=== PATIENT | male | born 1955 | race Caucasian/White ===

== ENCOUNTER → 2016-08-21 | Outpatient (CLI) | payer OTHER ==
--- NOTE | 2016-08-21 11:58 | RAD ---
Indication lightheaded. Elevated blood pressure. Suspect TIA. Grayscale color Doppler and spectral imaging was performed. Examination was targeted to the carotid bifurcations. On the left there is slight intimal thickening at the bifurcation. The color Doppler images do not suggest significant turbulence. The common carotid waveform and velocities are normal. The internal carotid waveform and velocities are also normal. The external carotid has a normal appearance. The vertebral is patent and demonstrates normal directional flow. On the right there is some plaquing and intimal thickening. The common carotid waveform and velocities are normal. At the bulb there is an elevated peak systolic and diastolic velocity. The corresponding measurements are approximately 232 and 77 cm/s corresponding to stenosis in the 70% range. In the proximal right internal carotid there are elevated peak systolic and diastolic velocities of approximately 200 and 65 cm/s respectively respectively compatible with stenosis in the 50-69% range. Vertebral is patent and demonstrates normal directional flow. IMPRESSION: Stenosis at the right carotid bulb likely in the 70% range. No hemodynamically significant stenosis seen on the left. Note: Stenosis calculations for CT, MR and conventional angiography are based upon determination of the distal ICA diameter in accordance with the NASCET methodology. Stenosis calculations for doppler studies are derived from validated velocity criteria which are known to correlate with NASCET methodology of determining stenosis.
== END | disposition home or self-care (01) ==
LOC: US 07:59
PROVIDERS: ATTEND Physician Assistant
DX: I10 Essential (primary) hypertension (principal); R42 Dizziness and giddiness; Z72.0 Tobacco use
CPT/HCPCS: 93880

== ENCOUNTER 2016-12-29 17:36 | Emergency (ER) | payer OTHER ==
[~2016-12-29] VITALS: Ht 185.4 cm; Wt 113.4 kg
[2016-12-29] MEDS ORDERED: LIDOCAINE 1% Multi-Dose 20 ML VIAL. ONE (18:02)
[2016-12-29] MEDS ORDERED: CEPH-264 PO (18:31)
--- NOTE | 2016-12-29 18:32 | PHYS DOC ---
Past History Past Medical History: Hypertension Past Surgical History: Other Alcohol Use: None Drug Use: None Adult General Chief Complaint Chief Complaint: LACERATION/AVULSION HPI HPI Patient is a 61 year old male who presents with complaint of laceration to the right index finger. Patient states he suffered this laceration at approximately 0900 this morning while attempting to sharpen his hatchet. Patient states that the hatchet accidentally slid off the sharpener it went across to his right index finger. Bleeding was controlled at home. Due to gaping skin, the patient came to the emergency department for evaluation. Patient denies any other injuries. Patient states that he last received a tetanus shot within the last 5 years. Patient states that he is able to move the finger normally. Patient states there is no pain. Patient states that he did immediately wash the wound at home and bandage it after this occurred. Review of Systems Review of Systems Constitutional: Denies fever or chills [] HENT: Denies nasal congestion or sore throat [] Musculoskeletal: Left index finger laceration [] Integument: Denies rash or skin lesions [] Neurologic: Denies headache, focal weakness or sensory changes [] Current Medications Current Medications Current Medications Medications (Trade) Dose Ordered Sig/Daniel Start Time Stop Time Status Last Admin Dose Admin Lidocaine HCl 20 ml STK-MED ONCE 12/29/16 18:02 12/29/16 18:03 DC Physical Exam Physical Exam Constitutional: Well developed, well nourished, no acute distress, non-toxic appearance. [] HENT: Normocephalic, atraumatic, bilateral external ears normal, oropharynx moist, no oral exudates, nose normal. [] Skin: Warm, dry, no erythema, no rash. [] Extremities: 2.5 cm linear laceration along dorsal lateral aspect of right index finger overlying the PIP joint, normal flexion and extension, no cyanosis , capillary refill less than 2 seconds, normal sensation. [] Neurologic: Alert and oriented X 3, normal motor function, normal sensory function, no focal deficits noted. [] Current Patient Data Vital Signs Vital Signs Date Time Temp Pulse Resp B/P (MAP) Pulse Ox O2 Delivery O2 Flow Rate FiO2 12/29/16 17:36 98.9 90 18 96 Room Air EKG EKG Not performed [] Radiology/Procedures Radiology/Procedures Not performed [] Course & Med Decision Making Course & Med Decision Making Pertinent Labs and Imaging studies reviewed. (See chart for details) Patient's laceration was repaired as outlined in the procedure note. Advised follow-up in 10 days for removal of sutures hip patient's primary care physician 's office. Patient given 5 day prophylactic course of Keflex. Patient's tetanus was up-to-date and did not require a booster in the emergency department. Advised patient to return emergency department for any worsening symptoms. Patient voiced understanding and in agreement with treatment plan. Dragon Disclaimer Dragon Disclaimer This chart was dictated in whole or in part using Voice Recognition software in a busy, high-work load, and often noisy Emergency Department environment. It may contain unintended and wholly unrecognized errors or omissions. Laceration Repair Lac Repair Indication: Right index finger laceration Procedure: The patient was placed in the appropriate position and anesthesia was achieved with injection of a digital block of the right index finger with lidocaine 1%. The area was then cleansed with tap water and chlorhexidine soap solution. The laceration was closed using simple interrupted 4-0 Ethilon sutures. The wound area was then dressed with antibiotic ointment, nonadherent pad and Coban. Total repaired wound length: 2.5 cm. Other Items: Total suture count: 4 The patient tolerated the procedure without difficulty. Complications: None. Departure Departure: Impression: Primary Impression: Finger laceration Disposition: 01 HOME, SELF-CARE Condition: GOOD Referrals: LEWIS QUEVEDO (PCP) Patient Instructions: Laceration Care, Adult, Sutured Wound Care Additional Instructions: Follow up with your primary doctor in 10-14 days for removal of your sutures. Return to the emergency department for any worsening symptoms. Scripts Cephalexin (KEFLEX) 500 Mg Capsule 1 CAP PO TID, #15 CAP Prov: UZIEL MANE MD 12/29/16 Problem Qualifiers Primary Impression: Finger laceration Encounter type: initial encounter Finger: index finger Damage to nail status: without damage Foreign body presence: without foreign body Laterality: right Qualified Codes: S61.210A - Laceration without foreign body of right index finger without damage to nail, initial encounter UZIEL MANE MD Dec 29, 2016 18:32
[2016-12-29] MEDS ORDERED: LIDOCAINE 1% Multi-Dose 20 ML VIAL. IJ ONE (18:45)
[2016-12-29 18:51] VITALS: BP 143/74
[2016-12-29] MEDS ORDERED: CEPHALEXIN 500 MG CAPSULE PO ONE (19:00)
[2016-12-29] MEDS ORDERED: CEPHALEXIN 250 MG CAPSULE PO ONE (19:00)
== END 2016-12-29 18:48 | disposition home or self-care (01) ==
LOC: ER 17:36
DX: S61.210A Laceration without foreign body of right index finger without damage to nail, initial encounter (principal); I10 Essential (primary) hypertension; W27.8XXA Contact with other nonpowered hand tool, initial encounter; Y93.89 Activity, other specified; Y99.8 Other external cause status; Y92.89 Other specified places as the place of occurrence of the external cause
CPT/HCPCS: 12001; 99283-25

== ENCOUNTER 2017-06-16 10:05 | Observation (INO) | payer OTHER ==
[~2017-06-16] VITALS: Ht 182.9 cm; Wt 124.9 kg
[~2017-06-16 10:05] MED LIST: CEPH-264 PO
[2017-06-16] MEDS ORDERED: IV NORMAL SALINE 1,000ML 1,000 ML IV SCH (10:15)
[2017-06-16 10:28] LABS: BASO # 0.1 x10^3/uL (0.0-0.2); BASO % 1 % (0-3); EOS # 0.4 x10^3/uL (0.0-0.7); EOS % 8 % (0-3); HEMOGLOBIN 11.9 g/dL (13.0-17.5); LYMPH # 1.6 x10^3/uL (1.0-4.8); LYMPH % 30 % (24-48); MEAN CORPUSCULAR HEMOGLOBIN 29 pg (25-35); MEAN CORPUSCULAR HGB CONC 33 g/dL (31-37); MEAN CORPUSCULAR VOLUME 86 fL (79-100); MONO # 0.7 x10^3/uL (0.0-1.1); MONO % 13 % (0-9); NEUT # 2.6 x10^3uL (1.8-7.7); NEUT % 48 % (31-73); PLATELET COUNT 240 x10^3/uL (140-400); RED BLOOD COUNT 4.17 x10^6/uL (4.30-5.70); RED CELL DISTRIBUTION WIDTH 14.6 % (11.5-14.5); WHITE BLOOD COUNT 5.5 x10^3/uL (4.0-11.0)
[2017-06-16] MEDS ORDERED: ASPIRIN 81 MG TAB.CHEW PO ONE (10:45)
[2017-06-16 10:51] LABS: CALCIUM 9.1 mg/dL (8.5-10.1); CREATININE 1.1 mg/dL (0.7-1.3); GFR 67.6; MAGNESIUM 1.9 mg/dL (1.8-2.4)
[2017-06-16] MEDS ORDERED: IOHEXOL 300 MG/ML 75 ML VIAL. IV ONE (11:30)
--- NOTE | 2017-06-16 11:58 | EKG ---
[address] [address] Test Date: 2017-06-16 Test Time: 10:12:46 Pat Name: WILL DUVALL Department: Room: Gender: M Automatic [employer] Sander: AIDEN : 1955 Requested By: TIMOTHY ANDUJAR Order Number: [id number] Reading MD: Alfa Thomas Measurements Intervals [place] Rate: 78 P: 41 DC: 154 QRS: 14 QRSD: 80 T: 35 QT: 364 QTc: 418 Interpretive Statements SINUS RHYTHM Electronically Signed On 06-17-2017 16:48:57 MOLD CARPENTER by Alfa Thomas
[2017-06-16] MEDS ORDERED: ENOXAPARIN ** NOTE DOSE ** SYRINGE SQ ONE (12:00)
--- NOTE | 2017-06-16 12:03 | RAD ---
CTA chest with contrast 06/16/2017 Clinical indication: Concern for pulmonary embolism. Comparison: None. Technique: Multiple CTA images of the chest were performed following the intravenous administration of 75 mL Omnipaque 300 iodinated contrast material. PQRS Compliance Statement: One or more of the following individualized dose reduction techniques were utilized for this examination: 1. Automated exposure control 2. Adjustment of the mA and/or kV according to patient size 3. Use of iterative reconstruction technique Findings: Heart size is normal without significant pericardial effusion. The thoracic aorta is normal in caliber. The central and major segmental pulmonary arteries are patent without focal filling defect. No axillary, mediastinal lymphadenopathy. There are mildly prominent bilateral hilar lymph nodes, likely reactive. The central airways are patent. No pleural effusion, pneumothorax or suspicious noncalcified pulmonary nodule. There is a chronic appearing moderate compression deformity at T8 with no significant bony retropulsion. There is a prominent subcentimeter lucency at the superior aspect of T8 with adjacent sclerosis. Limited images of the upper abdomen moderate diffuse hepatic steatosis. Impression: 1. No CT evidence of pulmonary embolism. 2. Moderate chronic appearing T8 compression deformity with a small adjacent lucency which may represent a Schmorl's node deformity, however pathologic fracture cannot be excluded. Nonemergent follow-up thoracic spine without with contrast is recommended. 3. Moderate hepatic steatosis.
--- NOTE | 2017-06-16 12:45 | PHYS DOC ---
Past History Past Medical History: Hypertension Past Surgical History: Other Alcohol Use: None Drug Use: None Adult General Chief Complaint Chief Complaint: CHEST PAIN HPI HPI Patient is a 62 year old M who presents with sudden onset of central pressure- like chest pain associated with diaphoresis and shortness of breath just prior to arrival. He states that his symptoms have improved. He has not had similar symptoms in the past. He did have a recent knee replacement with a follow-up explored of arthroscopy due to concern for infection on May 30. He had no infection at that time. He has high blood pressure and smoke tobacco up until [place] of this past year. He has no other associated symptoms. And no other exacerbating or relieving factors. Review of Systems Review of Systems Constitutional: Denies fever or chills [] Eyes: Denies change in visual acuity, redness, or eye pain [] HENT: Denies nasal congestion or sore throat [] Respiratory: Negative except history of present illness Cardiovascular: No additional information not addressed in HPI [] GI: Denies abdominal pain, nausea, vomiting, bloody stools or diarrhea [] : Denies dysuria or hematuria [] Musculoskeletal: Denies back pain or joint pain [] Integument: Denies rash or skin lesions [] Neurologic: Denies headache, focal weakness or sensory changes [] Endocrine: Denies polyuria or polydipsia [] All other systems were reviewed and found to be within normal limits, except as documented in this note. Family History Family History No pertinent family medical history was reported Current Medications Current Medications Current medications were reviewed Current Medications Medications (Trade) Dose Ordered Sig/Daniel Start Time Stop Time Status Last Admin Dose Admin Aspirin (Children'S Aspirin) 324 mg 1X ONCE 06/16/17 10:45 06/16/17 10:46 DC Enoxaparin Sodium (Lovenox 120mg Syringe) 115 mg 1X ONCE 06/16/17 12:00 06/16/17 12:07 DC Iohexol (Omnipaque 300 Mg/ml) 75 ml 1X ONCE 06/16/17 11:30 06/16/17 11:30 DC Sodium Chloride 1,000 ml @ 1,000 mls/hr Q1H 06/16/17 10:15 06/16/17 11:14 DC 06/16/17 11:08 1,000 MLS/HR Allergies Allergies Allergies Coded Allergies Type Severity Reaction Last Updated Verified No Known Drug Allergies 12/29/16 No Physical Exam Physical Exam Constitutional: Well developed, well nourished, no acute distress, non-toxic appearance. [] HENT: Normocephalic, atraumatic, Eyes: EOMI, conjunctiva normal, no discharge. [] Neck: Normal range of motion, no tenderness, supple, no stridor. [] Cardiovascular:Heart rate regular rhythm, Lungs & Thorax: Bilateral breath sounds clear to auscultation [] Abdomen: Bowel sounds normal, soft, no tenderness, no masses, no pulsatile masses. [] Skin: Warm, dry, no erythema, no rash. [] Back: No tenderness, no CVA tenderness. [] Extremities: No tenderness, no cyanosis, no clubbing, ROM intact, no edema. [] Neurologic: Alert and oriented X 3, normal motor function, normal sensory function, no focal deficits noted. [] Psychologic: Affect normal, judgement normal, mood normal. [] Current Patient Data Vital Signs Normal vital signs. Please review nursing documentation for specifics Lab Results Laboratory Tests Test 06/16/17 10:18 White Blood Count 5.5 x10^3/uL (4.0-11.0) Red Blood Count 4.17 x10^6/uL (4.30-5.70) L Hemoglobin 11.9 g/dL (13.0-17.5) L Hematocrit 36.0 % (39.0-53.0) L Mean Corpuscular Volume 86 fL (79-100) Mean Corpuscular Hemoglobin 29 pg (25-35) Mean Corpuscular Hemoglobin Concent 33 g/dL (31-37) Red Cell Distribution Width 14.6 % (11.5-14.5) H Platelet Count 240 x10^3/uL (140-400) Neutrophils (%) (Auto) 48 % (31-73) Lymphocytes (%) (Auto) 30 % (24-48) Monocytes (%) (Auto) 13 % (0-9) H Eosinophils (%) (Auto) 8 % (0-3) H Basophils (%) (Auto) 1 % (0-3) Neutrophils # (Auto) 2.6 x10^3uL (1.8-7.7) Lymphocytes # (Auto) 1.6 x10^3/uL (1.0-4.8) Monocytes # (Auto) 0.7 x10^3/uL (0.0-1.1) Eosinophils # (Auto) 0.4 x10^3/uL (0.0-0.7) Basophils # (Auto) 0.1 x10^3/uL (0.0-0.2) D-Dimer (Kinjal) 12.78 mg/L (0.00-0.50) H Sodium Level 139 mmol/L (136-145) Potassium Level 4.0 mmol/L (3.5-5.1) Chloride Level 101 mmol/L (98-107) Carbon Dioxide Level 29 mmol/L (21-32) Anion Gap 9 (6-14) Blood Urea Nitrogen 19 mg/dL (8-26) Creatinine 1.1 mg/dL (0.7-1.3) Estimated GFR (Cockcroft-Gault) 67.6 Glucose Level 113 mg/dL (70-99) H Calcium Level 9.1 mg/dL (8.5-10.1) Magnesium Level 1.9 mg/dL (1.8-2.4) Creatine Kinase 325 U/L (39-308) H Creatine Kinase MB (Mass) 3.9 ng/mL (0.0-3.6) H Creatine Kinase MB Relative Index 1.2 % (0-4) Troponin I Quantitative < 0.017 ng/mL (0-0.055) KZ-Dmx-N-Type Natriuretic Peptide 53 pg/mL (0-124) EKG EKG No sinus rhythm[] Radiology/Procedures Radiology/Procedures CT angiogram - negative for PE per radiology report Course & Med Decision Making Course & Med Decision Making Pertinent Labs and Imaging studies reviewed. (See chart for details) [] Dragon Disclaimer Dragon Disclaimer This electronic medical record was generated, in whole or in part, using a voice recognition dictation system. Departure Departure: Impression: Primary Impression: Chest pain Disposition: ADMITTED INPATIENT Condition: STABLE Referrals: LEWIS QUEVEDO (PCP) Problem Qualifiers Primary Impression: Chest pain Chest pain type: unspecified Qualified Codes: R07.9 - Chest pain, unspecified TIMOTHY ANDUJAR MD Jun 16, 2017 12:45
[2017-06-16 15:14] VITALS: BP 164/81
[2017-06-16] MEDS ORDERED: ASPI325T8 PO (15:30)
[2017-06-16] MEDS ORDERED: OMEP20TA8 PO (15:30)
[2017-06-16] MEDS ORDERED: SENN8.6T99 PO (15:30)
[2017-06-16] MEDS ORDERED: HYDR-2766 PO (15:30)
[2017-06-16] MEDS ORDERED: CHOL500016 PO (15:30)
[2017-06-16] MEDS ORDERED: FERR324T2 PO (15:30)
[2017-06-16] MEDS ORDERED: VALS320T2 PO (15:30)
[2017-06-16] MEDS ORDERED: CIPR500T94 PO (15:32)
[2017-06-16] MEDS ORDERED: DOXY100T PO (15:32)
--- NOTE | 2017-06-16 17:37 | CARD ---
MR#: [id number] Date of Study: 06/16/2017 Ordering Physician: YAMILKA CHANG, Referring Physician: YAMILKA CHANG Tech: Azeem Barreto [facility] APPROVED REPORT EXAM: Two-dimensional and M-mode echocardiogram with Doppler and color Doppler. Other Information Quality : AverageHR: 76bpm INDICATION Chest Pain 2D DIMENSIONS Left Atrium(2D)3.9 (1.6-4.0cm)IVSd1.1 (0.7-1.1cm) Aortic Root(2D)3.1 (2.0-3.7cm)LVDd4.6 (3.9-5.9cm) LVOT Diameter2.3 (1.8-2.4cm)PWd1.0 (0.7-1.1cm) LVDs3.2 (2.5-4.0cm)FS (%) 30.9 % SV56.3 mlLVEF(%)58.6 (>50%) Aortic Valve AoV Peak Seamus.169.9cm/sAoV VTI34.2cm AO Peak GR.11.6mmHgLVOT Peak Seamus.135.8cm/s AO Mean GR.6mmHgAVA (VMAX)3.38cm2 Mitral Valve MV E Chjozcvc87.4cm/sMV DECEL [id number] MV A Rwvdelgl69.7cm/sE/A Ratio1.1 Pulmonary Valve PV Peak Wxqgiixq693.0cm/sPV Peak Grad.7mmHg Tricuspid Valve TR P. Pylyrmvt527cz/sTR Peak Gr.9mmHg Pulmonary Vein S1 Qhwtjomm32.2cm/sD2 Cfcjygon11.0cm/s LEFT VENTRICLE The left ventricle is normal size. There is normal left ventricular wall thickness. The left ventricu lar systolic function is normal and the ejection fraction is within normal range. EF 65% There is nor mal LV segmental wall motion. The left ventricular diastolic function and filling is normal for age. No left ventricle thrombus noted on this study. RIGHT VENTRICLE The right ventricle is normal size. The right ventricular systolic function is normal. ATRIA The left atrium size is normal. The right atrium size is normal. The interatrial septum is intact wit h no evidence for an atrial septal defect or patent foramen ovale as noted on 2-D or Doppler imaging. AORTIC VALVE Not well visualized. Doppler and Color Flow revealed trace aortic regurgitation. There is no signific ant aortic valvular stenosis. There is no aortic valvular vegetation. MITRAL VALVE Not well visualized. There is no evidence of mitral valve prolapse. There is no mitral valve stenosis . Doppler and Color-flow revealed trace mitral regurgitation. TRICUSPID VALVE The tricuspid valve is normal in structure and function. Doppler and Color Flow revealed trace tricus pid regurgitation. There is no tricuspid valve prolapse or vegetation. There is no tricuspid valve st enosis. PULMONIC VALVE Pulmonic valve was not visualized well. Doppler and Color Flow revealed trace pulmonic valvular regur gitation. There is trace pulmonic stenosis. GREAT VESSELS The aortic root is normal in size. The IVC is normal in size and collapses >50% with inspiration. PERICARDIAL EFFUSION There is no pleural effusion. There is no evidence of significant pericardial effusion. Critical Notification Critical Value: No <Conclusion> The left ventricular systolic function is normal and the ejection fraction is within normal range. EF 65% There is normal LV segmental wall motion. Signed by : Juan Carlos West, Electronically Approved : 06/16/2017 17:36:58
[2017-06-16 18:09] LABS: CALCIUM 9.2 mg/dL (8.5-10.1); CREATININE 0.9 mg/dL (0.7-1.3); GFR 85.2; POTASSIUM 4.2 mmol/L (3.5-5.1)
[2017-06-16] MEDS ORDERED: HYDROcodone/APAP 10/325 1 TAB TABLET PO PRN (18:45)
[2017-06-16 19:15] VITALS: BP 152/85
[2017-06-16] MEDS ORDERED: AMIT75TA PO (19:54)
[2017-06-16] MEDS ORDERED: SENNOSIDES 8.6 MG TABLET PO SCH (21:00)
[2017-06-16] MEDS ORDERED: AMITRIPTYLINE HCL 75 MG TABLET PO SCH (21:00)
[2017-06-16] MEDS: CIPROFLOXACIN HCL 500 MG TABLET PO SCH (21:17)
[2017-06-16] MEDS: DOXYCYCLINE HYCLATE 100 MG TABLET PO SCH (21:17)
[2017-06-16] MEDS: LACTOBACILLUS RHAMNOSUS GG 1 CAPSULE. PO SCH (21:17)
[2017-06-16] MEDS: ASPIRIN 325 MG TABLET PO SCH (21:17)
[2017-06-16 22:40] VITALS: BP 153/74
[2017-06-17 06:00] VITALS: BP 135/94
[2017-06-17] MEDS ORDERED: PANTOPRAZOLE 40 MG TABLET. PO SCH (07:30)
[2017-06-17] MEDS ORDERED: FERROUS GLUCONATE 324 MG TABLET PO SCH (08:00)
[2017-06-17] MEDS: DOXYCYCLINE HYCLATE 100 MG TABLET PO SCH (08:53)
[2017-06-17] MEDS: LACTOBACILLUS RHAMNOSUS GG 1 CAPSULE. PO SCH (08:53)
[2017-06-17] MEDS: CIPROFLOXACIN HCL 500 MG TABLET PO SCH (08:53)
[2017-06-17] MEDS: ASPIRIN 325 MG TABLET PO SCH (08:53)
[2017-06-17] MEDS ORDERED: CHOLECALCIFEROL (VITAMIN D3) 1,000 UNIT TABLET PO SCH (09:00)
[2017-06-17] MEDS ORDERED: LOSARTAN 50 MG TABLET. PO SCH (09:00)
--- NOTE | 2017-06-17 09:41 | PDOC2 ---
CONSULT Date of Admission DATE: 06/17/17 TIME: 09:40 Reason for Consult: chest pain Problem List Problems Medical Problems: (1) Chest pain Status: Acute History of Present Illness Mr Santillan is a 62 year old male with history of hypertension, peripheral vascular disease and recent knee surgery. He presents with complaints of midsternal chest pain that started while in the kitchen cooking. He reports sudden onset of midsternal pain, non radiating, non exertional. He had associated nausea, dyspnea and diaphoresis. He reports resting for a few minutes with no change so called EMS. Pain started to improve during transport. He has been pain free since admission. He has ambulated without problems. He reports a prior episode of pain similar for which he underwent stress testing several years ago. He has been less active due to recent knee surgery and subsequent infection for which he continues to receive antibiotics. Past Medical History hypertension, carotid stenosis, neuropathy, chronic back pain, GERD Past Surgical History spinal fusion x 2, bilateral total knee replacements, carotid endarterectomy Family History non contributory Social History prior smoker, quit at [facility], no significant ETOH, no illicit drugs Current Medications Current Medications Aspirin (Children'S Aspirin) 324 mg 1X ONCE PO ; Start 06/16/17 at 10:45; Stop 06/16/17 at 10:46; Status DC Sodium Chloride 1,000 ml @ 1,000 mls/hr Q1H IV Last administered on 06/16/17at 11:08; Start 06/16/17 at 10:15; Stop 06/16/17 at 11:14; Status DC Enoxaparin Sodium (Lovenox 120mg Syringe) 115 mg 1X ONCE SQ ; Start 06/16/17 at 12:00; Stop 06/16/17 at 12:07; Status DC Iohexol (Omnipaque 300 Mg/ml) 75 ml 1X ONCE IV ; Start 06/16/17 at 11:30; Stop 06/16/17 at 11:30; Status DC Aspirin (Lola Aspirin) 325 mg BID PO Last administered on 06/17/17at 08:53; Start 06/16/17 at 21:00 Ciprofloxacin (Cipro) 500 mg BID PO Last administered on 06/17/17at 08:53; Start 06/16/17 at 21:00 Doxycycline Hyclate (Vibra-Tab) 100 mg BID PO Last administered on 06/17/17at 08 :53; Start 06/16/17 at 21:00 Acetaminophen/ Hydrocodone Bitart (Lortab 10/325) 1 tab PRN Q6HRS PRN PO PAIN; Start 06/16/17 at 18:45 Sennosides (Senna) 8.6 mg HS PO Last administered on 06/16/17at 21:17; Start at 21:00 Vitamin D (Vitamin D3) 5,000 unit DAILY PO Last administered on 06/17/17at 08:53 ; Start 06/17/17 at 09:00 Ferrous Gluconate (Fergon) 324 mg DAILYWBKFT PO Last administered on 06/17/17 08:53; Start 06/17/17 at 08:00 Pantoprazole Sodium (Protonix) 40 mg DAILYAC PO Last administered on 06/17/17at 08:53; Start 06/17/17 at 07:30 Losartan Potassium (Cozaar) 100 mg DAILY PO Last administered on 06/17/17at 08: 53; Start 06/17/17 at 09:00 Lactobacillus Rhamnosus (Culturelle) 1 cap BID PO Last administered on at 08:53; Start 06/16/17 at 21:00 Amitriptyline HCl (Elavil) 75 mg HS PO Last administered on 06/16/17at 21:17; Start 06/16/17 at 21:00 Active Scripts Active Reported Amitriptyline Hcl 75 Mg Tablet 75 Mg PO HS Cipro (Ciprofloxacin Hcl) 500 Mg Tablet 1 Tab PO BID LAST DOSE GIVEN: DATE: TIME: NEXT DOSE DUE: DATE: TIME: Doxycycline Hyclate 100 Mg Tablet 1 Tab PO BID LAST DOSE GIVEN: DATE: TIME: NEXT DOSE DUE: DATE: TIME: Hydrocodone-Apap 10-325 (Hydrocodone Bit/Acetaminophen) 1 Each Tablet 1 Tab PO PRN Q6HRS PRN LAST DOSE GIVEN: DATE: TIME: NEXT DOSE DUE: DATE: TIME: Senokot (Sennosides) 8.6 Mg Tablet 1 Tab PO HS LAST DOSE GIVEN: DATE: TIME: NEXT DOSE DUE: DATE: TIME: Vitamin D3 (Cholecalciferol (Vitamin D3)) 5,000 Unit Tablet 1 Tab PO DAILY LAST DOSE GIVEN: DATE: TIME: NEXT DOSE DUE: DATE: TIME: Omeprazole 20 Mg Tablet.dr Dueñas Tab PO DAILY LAST DOSE GIVEN: DATE: TIME: NEXT DOSE DUE: DATE: TIME: Ferrous Gluconate 324 Mg Tablet 324 Mg PO DAILY LAST DOSE GIVEN: DATE: TIME: NEXT DOSE DUE: DATE: TIME: Diovan (Valsartan) 320 Mg Tablet 1 Tab PO DAILY LAST DOSE GIVEN: DATE: TIME: NEXT DOSE DUE: DATE: TIME: Aspirin 325 Mg Tablet 1 Tab PO BID LAST DOSE GIVEN: DATE: TIME: NEXT DOSE DUE: DATE: TIME: Allergies: Coded Allergies: No Known Drug Allergies (Unverified , 12/29/16) Review of System as per HPI or negative General: Alert, Oriented X3, Cooperative, No acute distress HEENT: Atraumatic, EOMI, Mucous membr. moist/pink, Other (right carotid bruit) Lungs: Clear to auscultation, Normal air movement Heart: Regular rate, Normal S1, Normal S2, Other (no gallops, clicks or rubs) Abdomen: Normal bowel sounds, Soft, No tenderness Extremities: No cyanosis, Normal pulses, Other (right knee incision healing, right lower extremity with mild erythema, trace edema and warmth) VITALS Vital Signs Date Time Temp Pulse Resp B/P (MAP) Pulse Ox O2 Delivery O2 Flow Rate FiO2 06/17/17 08:53 77 135/94 06/17/17 06:00 97.7 95 Room Air 06/16/17 22:40 20 Labs Laboratory Tests Test 06/16/17 10:18 06/16/17 17:45 06/16/17 23:51 White Blood Count 5.5 x10^3/uL (4.0-11.0) Red Blood Count 4.17 x10^6/uL (4.30-5.70) Hemoglobin 11.9 g/dL (13.0-17.5) Hematocrit 36.0 % (39.0-53.0) Mean Corpuscular Volume 86 fL (79-100) Mean Corpuscular Hemoglobin 29 pg (25-35) Mean Corpuscular Hemoglobin Concent 33 g/dL (31-37) Red Cell Distribution Width 14.6 % (11.5-14.5) Platelet Count 240 x10^3/uL (140-400) Neutrophils (%) (Auto) 48 % (31-73) Lymphocytes (%) (Auto) 30 % (24-48) Monocytes (%) (Auto) 13 % (0-9) Eosinophils (%) (Auto) 8 % (0-3) Basophils (%) (Auto) 1 % (0-3) Neutrophils # (Auto) 2.6 x10^3uL (1.8-7.7) Lymphocytes # (Auto) 1.6 x10^3/uL (1.0-4.8) Monocytes # (Auto) 0.7 x10^3/uL (0.0-1.1) Eosinophils # (Auto) 0.4 x10^3/uL (0.0-0.7) Basophils # (Auto) 0.1 x10^3/uL (0.0-0.2) D-Dimer (Kinjal) 12.78 mg/L (0.00-0.50) Sodium Level 139 mmol/L (136-145) 140 mmol/L (136-145) Potassium Level 4.0 mmol/L (3.5-5.1) 4.2 mmol/L (3.5-5.1) Chloride Level 101 mmol/L (98-107) 103 mmol/L (98-107) Carbon Dioxide Level 29 mmol/L (21-32) 28 mmol/L (21-32) Anion Gap 9 (6-14) 9 (6-14) Blood Urea Nitrogen 19 mg/dL (8-26) 15 mg/dL (8-26) Creatinine 1.1 mg/dL (0.7-1.3) 0.9 mg/dL (0.7-1.3) Estimated GFR (Cockcroft-Gault) 67.6 85.2 Glucose Level 113 mg/dL (70-99) 111 mg/dL (70-99) Calcium Level 9.1 mg/dL (8.5-10.1) 9.2 mg/dL (8.5-10.1) Magnesium Level 1.9 mg/dL (1.8-2.4) Creatine Kinase 325 U/L (39-308) Creatine Kinase MB (Mass) 3.9 ng/mL (0.0-3.6) Creatine Kinase MB Relative Index 1.2 % (0-4) Troponin I Quantitative < 0.017 ng/mL (0-0.055) < 0.017 ng/mL (0-0.055) < 0.017 ng/mL (0-0.055) QU-Oft-N-Type Natriuretic Peptide 53 pg/mL (0-124) Images CTA- Impression: 1. No CT evidence of pulmonary embolism. 2. Moderate chronic appearing T8 compression deformity with a small adjacent lucency which may represent a Schmorl's node deformity, however pathologic fracture cannot be excluded. Nonemergent follow-up thoracic spine without with contrast is recommended. 3. Moderate hepatic steatosis. EKG - sinus rhythm, early transition, no acute ischemic changes Assessment/Plan 1. chest pain - [place] ruled out. LVEF and wall motion normal by Echo. No acute EKG changes. Suggest medical mgmt, with outpatient MPI and follow up. 2. hypertension - resume home meds 3. PVD s/p right CEA 4. recent right TKA with lower extremity cellulitis - on oral antibiotics 5. GERD - PPI Problems: ADILIA PETERSON APRN Jun 17, 2017 09:41
[2017-06-17] MEDS ORDERED: METOPROLOL SUCC 24HR ER 25 MG TAB.ER.24H. PO SCH (10:00)
[2017-06-17 11:17] VITALS: BP 176/73
--- NOTE | 2017-06-17 13:11 | RAD ---
Bilateral lower extremity venous ultrasound, 06/17/2017: History: Chest pain, elevated d-dimer, right leg swelling and redness Duplex evaluation of the deep veins in the lower extremities was performed including grayscale, color-flow and spectral Doppler analysis. The femoral and popliteal veins demonstrate normal compressibility and normal responses to distal augmentation maneuvers. Color imaging of those vessels shows no evidence of intraluminal clot. The visualized deep veins in both calves are patent. A mildly prominent lymph node is noted in the right upper thigh measuring 29 x 12 mm in the longitudinal plane. A small right knee joint effusion is present. IMPRESSION: There is no sonographic evidence of deep vein thrombosis in either lower extremity.
[2017-06-17 14:23] VITALS: BP 174/89
[2017-06-17] MEDS ORDERED: METO25TA2 PO (14:29)
== END 2017-06-17 15:46 | disposition home or self-care (01) ==
LOC: ER 10:05 → 1 SOUTH 13:00 → ER 14:15
PROVIDERS: ADMIT Internal Medicine; ATTEND Internal Medicine
DX: R07.89 Other chest pain (principal); I10 Essential (primary) hypertension; I73.9 Peripheral vascular disease, unspecified; K21.9 Gastro-esophageal reflux disease without esophagitis; I65.29 Occlusion and stenosis of unspecified carotid artery; G62.9 Polyneuropathy, unspecified; Z87.891 Personal history of nicotine dependence; Z96.653 Presence of artificial knee joint, bilateral; Z98.1 Arthrodesis status
CPT/HCPCS: 36415; 71275; 80048; 80061; 82553; 83735; 83880; 84484; 85025; 85379; 93005; 93306; 93970; 96360; 99285; G0378; G0379; J7030

== ENCOUNTER → 2017-11-21 | Outpatient (CLI) | payer OTHER ==
[~2017-11-21] MED LIST changes: +AMIT75TA PO; +ASPI325T8 PO; +BUPIVACAINE MPF 0.25% 10 ML VIAL. ONE; +CHOL500016 PO; +CIPR500T94 PO; +DOXY100T PO; +FERR324T2 PO; +HYDR-2766 PO; +LIDOCAINE 1% PF 30 ML VIAL. ONE; +METO25TA2 PO; +OMEP20TA8 PO; +SENN8.6T99 PO; +VALS320T2 PO
== END | disposition home or self-care (01) ==
LOC: SURG 10:58
PROVIDERS: ATTEND Anesthesiology Pain Medicine
DX: M79.1 Myalgia (principal); I10 Essential (primary) hypertension; F17.210 Nicotine dependence, cigarettes, uncomplicated; Z87.39 Personal history of other diseases of the musculoskeletal system and connective tissue; Z72.89 Other problems related to lifestyle; Z96.653 Presence of artificial knee joint, bilateral; Z98.890 Other specified postprocedural states
CPT/HCPCS: 20552; J2001; J3490

== ENCOUNTER → 2018-01-26 | Outpatient (CLI) | payer OTHER ==
[~2018-01-26] MED LIST changes: -BUPIVACAINE MPF 0.25% 10 ML VIAL. ONE; -LIDOCAINE 1% PF 30 ML VIAL. ONE
--- NOTE | 2018-01-26 08:51 | RAD ---
CHEST PA LATERAL dated 01/26/2018 8:32 AM. Comparison: 08/13/2016 Clinical Indication: COUGH. Findings: PA and lateral views of the chest were obtained. Heart and mediastinal contours within normal limits. Lungs are clear without focal consolidation. Vascular interstitium within normal limits. No pleural effusion or pneumothorax. Impression: No acute radiographic abnormality. Electronically signed by: Suresh Simeon MD (01/26/2018 8:47 AM) [id number]
== END | disposition home or self-care (01) ==
LOC: PMG 08:12
PROVIDERS: ATTEND Physician Assistant Medical
DX: R05 Cough (principal); K21.9 Gastro-esophageal reflux disease without esophagitis; Z96.653 Presence of artificial knee joint, bilateral; Z87.891 Personal history of nicotine dependence; Z87.39 Personal history of other diseases of the musculoskeletal system and connective tissue
CPT/HCPCS: 71046

== ENCOUNTER → 2018-10-02 | Outpatient (CLI) | payer MEDICARE ==
[~2018-10-02] MED LIST changes: -HYDR-2766 PO; +HYDR-2769 PO
== END | disposition home or self-care (01) ==
LOC: SURG 11:14
PROVIDERS: ATTEND Anesthesiology Pain Medicine
DX: M47.26 Other spondylosis with radiculopathy, lumbar region (principal); M96.1 Postlaminectomy syndrome, not elsewhere classified; M25.569 Pain in unspecified knee; I10 Essential (primary) hypertension; Z79.899 Other long term (current) drug therapy
CPT/HCPCS: 99213

== ENCOUNTER → 2019-06-25 | Outpatient (CLI) | payer MEDICARE ==
--- NOTE | 2019-06-25 15:35 | RAD ---
PA and lateral chest x-ray compared to similar exam dated January 26, 2018 for cough. FINDINGS: Lungs are clear. Cardiomediastinum is grossly unremarkable. New nerve stimulator is present. No significant osseous abnormalities. IMPRESSION: 1. No acute cardiopulmonary abnormality. Electronically signed by: Jomar Victoria MD (06/25/2019 3:32 PM) [facility]
== END | disposition home or self-care (01) ==
LOC: PMG 14:56
PROVIDERS: ATTEND Physician Assistant Medical
DX: R05 Cough (principal)
CPT/HCPCS: 71046

== ENCOUNTER → 2019-11-04 | Outpatient (CLI) | payer MEDICARE | END | disposition home or self-care (01) | LOC: LAB 09:13 | PROVIDERS: ATTEND Internal Medicine Cardiovascular Disease | DX: E78.5 Hyperlipidemia, unspecified (principal) | CPT/HCPCS: 80061 ==

== ENCOUNTER → 2020-07-12 | Outpatient (CLI) | payer MEDICARE ==
[2020-07-12 10:58] LABS: ALBUMIN 3.9 g/dL (3.4-5.0); CREATININE 1.1 mg/dL (0.7-1.3); POTASSIUM 4.5 mmol/L (3.5-5.1); TOTAL BILIRUBIN 0.3 mg/dL (0.2-1.0); TOTAL PROTEIN 7.8 g/dL (6.4-8.2)
== END ==
LOC: LAB 09:13
PROVIDERS: ATTEND Internal Medicine Cardiovascular Disease
DX: E78.5 Hyperlipidemia, unspecified (principal)
CPT/HCPCS: 36415; 80053; 80061

== ENCOUNTER 2020-11-06 07:16 | Emergency (ER) | payer MEDICARE ==
[~2020-11-06] VITALS: Ht 185.4 cm; Wt 115.0 kg
[2020-11-06 07:29] VITALS: BP 185/71
[2020-11-06] MEDS ORDERED: PRED-220 PO (07:58)
[2020-11-06] MEDS ORDERED: CYCL-331 PO (07:58)
--- NOTE | 2020-11-06 07:59 | PHYS DOC ---
Past History Past Medical History: GERD, Hypertension, Other Past Surgical History: Other Alcohol Use: None Drug Use: None General Adult EDM: Chief Complaint: LOWER BACK PAIN OR INJURY HPI: HPI: 65-year-old male presents with about the right low back. The patient has chronic low back issues and has a nerve stimulator. He has been doing pretty well lately but today he got out of bed and was just walking when he took an odd step and had sudden onset of pain in the right low back. He describes it as being at the top of the buttocks just right of center. He denies numbness or tingling in his legs. He took 2 [place] 7.5's at home 1 hour prior to arrival. This has decreased his 9 out of 10 pain to a 5 out of 10. Patient was surprised that he had this much pain it was not sure what happened so he came in for evaluation. Review of Systems: Review of Systems: Constitutional: Denies fever or chills Eyes: Denies change in visual acuity HENT: Denies nasal congestion or sore throat Respiratory: Denies cough or shortness of breath Cardiovascular: Denies chest pain or edema GI: Denies abdominal pain, nausea, vomiting, bloody stools or diarrhea : Denies dysuria Musculoskeletal: Low back pain Integument: Denies rash Neurologic: Denies headache, focal weakness or sensory changes Endocrine: Denies polyuria or polydipsia Lymphatic: Denies swollen glands Psychiatric: Denies depression or anxiety Allergies: Allergies: Allergies Coded Allergies Type Severity Reaction Last Updated Verified No Known Drug Allergies 12/29/16 No Physical Exam: PE: Constitutional: Well developed, well nourished, no acute distress, non-toxic appearance. [] HENT: Normocephalic, atraumatic, bilateral external ears normal, oropharynx moist, no oral exudates, nose normal. [] Eyes: PERRLA, EOMI, conjunctiva normal, no discharge. [] Neck: Normal range of motion, no tenderness, supple, no stridor. [] Cardiovascular: Heart rate regular rhythm, no murmur [] Lungs & Thorax: Bilateral breath sounds clear to auscultation [] Abdomen: Bowel sounds normal, soft, no tenderness, no masses, no pulsatile masses. [] Skin: Warm, dry, no erythema, no rash. [] Back: Patient with point tenderness of the right sacroiliac joint, right sacrum anterior left sacrum posterior. [] Extremities: No tenderness, no cyanosis, no clubbing, ROM intact, no edema. [] Neurologic: Alert and oriented X 3, normal motor function, normal sensory function, no focal deficits noted. [] Psychologic: Affect normal, judgement normal, mood normal. [] Current Patient Data: Vital Signs: Vital Signs Date Time Temp Pulse Resp B/P (MAP) Pulse Ox O2 Delivery O2 Flow Rate FiO2 11/06/20 07:29 98.3 81 16 185/71 (109) 96 Room Air EKG: EKG: [] Radiology/Procedures: Radiology/Procedures: [] Heart Score: C/O Chest Pain: N/A Risk Factors: Risk Factors: DM, Current or recent (<one month) smoker, HTN, HLP, family history of CAD, obesity. Risk Scores: Score 0 - 3: 2.5% MACE over next 6 weeks - Discharge Home Score 4 - 6: 20.3% MACE over next 6 weeks - Admit for Clinical Observation Score 7 - 10: 72.7% MACE over next 6 weeks - Early Invasive Strategies Course & Med Decision Making: Course & Med Decision Making Pertinent Labs and Imaging studies reviewed. (See chart for details) The patient appears to have acute sacroiliac dysfunction on the right. I will treat him with Flexeril and steroids. He will go to his primary after he leaves the ER for discussion about pain medication. I have reassured him that this should be short-lived and improved within 1 to 2 days. He is stable for discharge at this time. [] Mejia Disclaimer: Mejia Disclaimer: This electronic medical record was generated, in whole or in part, using a voice recognition dictation system. Departure Departure: Impression: Primary Impression: Pain of right sacroiliac joint Disposition: HOME / SELF CARE / HOMELESS Condition: STABLE Referrals: LEWIS QUEVEDO (PCP) Patient Instructions: Sacroiliac Joint Dysfunction Scripts Prednisone (PREDNISONE) 10 Mg Tablet 50 MG PO DAILY for sacrum pain for 4 Days, #20 TAB Prov: BENITO CERVANTES DO 11/06/20 Cyclobenzaprine Hcl (CYCLOBENZAPRINE HCL) 10 Mg Tablet 1 TAB PO TID PRN for MUSCLE SPASMS, #30 TAB Prov: BENITO CERVANTES DO 11/06/20 BENITO CERVANTES DO Nov 06, 2020 07:59
== END 2020-11-06 08:01 | disposition home or self-care (01) ==
LOC: ER 07:16
DX: M53.3 Sacrococcygeal disorders, not elsewhere classified (principal); M54.5 Low back pain; K21.9 Gastro-esophageal reflux disease without esophagitis; I10 Essential (primary) hypertension
CPT/HCPCS: 99283

== ENCOUNTER → 2021-01-02 | Outpatient (CLI) | payer MEDICARE ==
[~2021-01-02] MED LIST changes: +CYCL-331 PO; +PRED-220 PO
--- NOTE | 2021-01-02 16:14 | CARD ---
MR#: [id number] Date of Study: 01/02/2021 Ordering Physician: ROSEMARIE RANGEL, Referring Physician: ROSEMARIE RANGEL, Tech: Agustín Faulkner [facility] APPROVED REPORT EXAM: Two-dimensional and M-mode echocardiogram with Doppler and color Doppler. Other Information Quality : Average Rhythm : NSRTechnically limited study due to body habitus. INDICATION Dizziness and Vertigo RISK FACTORS Hypertension Obesity Hyperlipidemia Smoking 2D DIMENSIONS Left Atrium(2D)4.0 (1.6-4.0cm)IVSd1.2 (0.7-1.1cm) Aortic Root(2D)3.8 (2.0-3.7cm)LVDd4.6 (3.9-5.9cm) LVOT Diameter2.0 (1.8-2.4cm)PWd1.3 (0.7-1.1cm) LA Bhvcpo74 (18-58mL)LVDs3.4 (2.5-4.0cm) FS (%) 27.3 %SV52.4 ml LVEF(%)53.2 (>50%) Aortic Valve AoV Peak Seamus.140.0cm/sAoV VTI30.0cm AO Peak GR.7.7mmHgLVOT Peak Seamus.130.0cm/s LVOT VTI 24.00cmAO Mean GR.4mmHg ALEXEI (VMAX)2.22jg5SWF (VTI)2.54cm2 Mitral Valve MV E Velocity0.6cm/sMV E Peak Gr.2mmHg MV DECEL [id number] A Velocity0.8cm/s MV E Mean Gr.1mmHgE/A Ratio0.8 TDI E/Lateral E'0.8 Pulmonary Valve PV Peak Egvdhhpd739.0cm/sPV Peak Grad.4mmHg Tricuspid Valve TR P. [id number]/sTR Peak Gr.15mmHg [id number] LEFT VENTRICLE The left ventricle is normal size. There is borderline to mild concentric left ventricular hypertroph y. The left ventricular systolic function is normal and the ejection fraction is within normal range. EF 55% There is normal LV segmental wall motion. Transmitral Doppler flow pattern is Grade I-abnorma l relaxation pattern. RIGHT VENTRICLE The right ventricle is normal size. There is normal right ventricular wall thickness. The right ventr icular systolic function is normal. ATRIA The left atrium is borderline dilated. The right atrium size is normal. The interatrial septum is int act with no evidence for an atrial septal defect or patent foramen ovale as noted on 2-D or Doppler i maging. AORTIC VALVE The aortic valve is normal in structure and function. Doppler and Color Flow revealed no significant aortic regurgitation. There is no significant aortic valvular stenosis. There is no aortic valvular v egetation. MITRAL VALVE The mitral valve is normal in structure and function. There is no evidence of mitral valve prolapse. There is no mitral valve stenosis. Doppler and Color Flow revealed no mitral valve regurgitation note d. TRICUSPID VALVE The tricuspid valve is normal in structure and function. Doppler and Color Flow revealed trace tricus pid regurgitation. There is no tricuspid valve prolapse or vegetation. There is no tricuspid valve st enosis. PULMONIC VALVE Not well seen Doppler and Color Flow revealed no pulmonic valvular regurgitation. There is no pulmoni c valvular stenosis. GREAT VESSELS The aortic root is normal in size. The ascending aorta is normal in size. The IVC is normal in size a nd collapses >50% with inspiration. PERICARDIAL EFFUSION There is no pleural effusion. There is no evidence of significant pericardial effusion. Critical Notification Critical Value: No <Conclusion> The left ventricular systolic function is normal and the ejection fraction is within normal range. EF 55% There is normal LV segmental wall motion. Signed by : oRsemarie Rangel, Electronically Approved : 01/02/2021 16:14:03
== END ==
LOC: ECHO 08:36
PROVIDERS: ATTEND Internal Medicine Cardiovascular Disease
DX: I11.9 Hypertensive heart disease without heart failure (principal); R42 Dizziness and giddiness
CPT/HCPCS: 93306